=== PATIENT | male | born 1965 | race Caucasian/White ===

== ENCOUNTER 2016-07-21 07:22 | Day surgery (SDC) | payer BC ==
[2016-07-20 11:54] VITALS: BMI 30.4
[2016-07-21] MEDS ORDERED: LIDOCAINE HCL/PF 2% SDV 5ML VIAL ONE (09:01)
[2016-07-21] MEDS ORDERED: ROCURONIUM BROMIDE 50 MG/5 ML VIAL ONE (09:02)
[2016-07-21] MEDS ORDERED: SUCCINYLCHOLINE CHLORIDE 200 MG/10 ML VIAL ONE (09:02)
[2016-07-21] MEDS ORDERED: MIDAZOLAM HCL 2 MG/2 ML SINGLE DOSE VIAL ONE (09:02)
[2016-07-21] MEDS ORDERED: PROPOFOL 20 ML ONE (09:02)
[2016-07-21] MEDS ORDERED: ERTAPENEM SODIUM 1 GM VIAL IVPB ONE (09:30)
[2016-07-21] MEDS ORDERED: ERTAPENEM SODIUM 1 GM VIAL ONE (09:32)
[2016-07-21] MEDS ORDERED: DEXAMETHASONE SOD PHOSPHATE 4 MG/1 ML VIAL ONE ×2 (09:52→09:53)
[2016-07-21] MEDS ORDERED: GLYCOPYRROLATE 0.2 MG/1 ML VIAL ONE (10:00)
[2016-07-21] MEDS ORDERED: NEOSTIGMINE METHYLSULFATE 0.5 MG/ML - 10 ML MDV ONE (10:00)
[2016-07-21] MEDS ORDERED: oxyCODONE HCL 5 MG TABLET PO PRN ×2 (10:17→16:34)
[2016-07-21] MEDS ORDERED: ONDANSETRON 4 MG/2 ML VIAL IVPUSH PRN ×2 (10:17→16:34)
[2016-07-21] MEDS ORDERED: LACTATED RINGERS SOLUTION 1,000 ML IV SCH (10:30)
[2016-07-21] MEDS ORDERED: HYDROmorphone HCL CARPU-JECT 1 MG/1 ML DISP.SYRIN IVPUSH ONE (14:00)
[2016-07-21] MEDS ORDERED: HYDROmorphone HCL CARPU-JECT 2 MG/1 ML DISP.SYRIN ONE (14:48)
[2016-07-21] MEDS ORDERED: KETOROLAC TROMETHAMINE 15 MG/ML VIAL IVPUSH PRN (16:33)
[2016-07-21] MEDS ORDERED: ACETAMINOPHEN 325 MG TABLET (FP) PO PRN (16:36)
[2016-07-21] MEDS ORDERED: D5-1/2NS+20 MEQ KCL - 1,000 ML IV SCH (16:45)
[2016-07-21] MEDS: FAMOTIDINE 20 MG/50 ML IVPB 50 ML IVPB SCH (21:29)
--- NOTE | 2016-07-21 23:04 | OP ---
DATE OF OPERATION: 07/21/2016 PREOPERATIVE DIAGNOSIS: Chronic cholecystitis/cholelithiasis. POSTOPERATIVE DIAGNOSIS: Chronic cholecystitis/cholelithiasis. PROCEDURE: Laparoscopic cholecystectomy. OPERATING SURGEON: Robert Boyer M.D. PULPWOOD BUYER: Mike Murdock D.O. ANESTHESIA: Stefany Pelayo M.D. (general) HISTORY: A 51-year-old man who presents for laparoscopic cholecystectomy, managed with symptomatic cholelithiasis. Indications, alternatives, possible complications reviewed. Consent obtained. DESCRIPTION OF PROCEDURE: With the patient in the supine position, under general endotracheal anesthesia, the abdomen was prepped and draped in the usual sterile fashion using chlorhexidine. Small incision was made in the infraumbilical region. The Veress needle was placed into the abdominal cavity. The abdominal cavity was insufflated to an adequate pressure and volume using CO2 gas. Veress needle was removed. An 11-mm trocar port placed through the umbilical wound. The camera lens passed through this port, and the intraabdominal cavity visualized. Under direct vision, two 5-mm right anterolateral ports were placed, exercising care not to encroach on the Lap-Band apparatus which was in plain view. An 11-mm port was placed in the epigastrium, through which operating instruments were passed. Limited exploration in the abdomen revealed multiple adhesions about the gallbladder. No other significant findings noted. These adhesions were taken down under direct vision, exposing the entire gallbladder and hepatoduodenal ligament. The was incised. The cystic duct was identified. The cystic duct/bile duct junction was noted. The cystic duct was clipped and divided. The adjacent artery was managed similarly. The gallbladder was then removed from the gallbladder bed, lysing its attachment using electrocautery. It was opened, disconnected, and placed in a retrievable bag. The right upper quadrant was irrigated. The irrigant retrieved. Adequate hemostasis was insured. All ports were removed under direct vision. No bleeding identified. Ultimately the umbilical port was removed. The gallbladder was extracted via the umbilical defect in its retrieval bag. The pneumoperitoneum was allowed to escape. The fascia at the umbilicus was closed with interrupted number 1 Vicryl sutures. Both skin wounds were closed using subcuticular 4-0 Biosyn sutures. Needle, instrument count correct. Estimated blood loss minimal. Specimen gallbladder. Drains none. Patient tolerated procedure. Procedure was tolerated. Lambert [id number] MTDD
[2016-07-22] MEDS: FAMOTIDINE 20 MG/50 ML IVPB 50 ML IVPB SCH (09:39)
[2016-07-22] MEDS ORDERED: ENOXAPARIN NA (PORCINE) 40 MG/0.4 ML DISP.SYRIN SQ SCH (10:00)
[2016-07-22] MEDS ORDERED: ERTAPENEM SODIUM 1 GM in SODIUM CHLORIDE 50 ML IVPB ONE (10:00)
[2016-07-22 10:31] VITALS: BP 120/69; PULSE 75; TEMP 98.2
--- NOTE | 2016-07-22 12:17 | PATH ---
Surgical Pathology Report Patient Name: BRAULIO GREEN [facility]. Rec. #: [id number] /Age/Gender: 1965 (Age: 51) / M Account: [id number] Location: AMBULATORY SURG Taken: 07/21/2016 Received: 07/21/2016 Reported: 07/22/2016 Physicians: Robert Boyer M.D. Specimen(s) Received GALLBLADDER Clinical History Calculus of gallbladder Final Diagnosis GALLBLADDER, CHOLECYSTECTOMY: CHRONIC CHOLECYSTITIS AND CHOLELITHIASIS. Electronically Signed Davi Claros M.D. Gross Description Received in formalin, labeled "gallbladder," is a 6.0 x 2.0 x 1.7 cm. gallbladder with a 0.2 cm. in length portion of cystic duct attached. The outer surface is song-pink with a focal defect and varies from smooth to shaggy. The lumen contains song, tenacious bile as well as abundant black, irregular choleliths ranging from 0.1-0.3 cm in greatest dimension. The mucosa is song and velvety. The wall of the gallbladder averages 0.1 cm. in thickness. Green Chain Puller sections are submitted in one cassette. /07/21/201607/21/2016
== END 2016-07-22 11:59 | disposition home or self-care (01) ==
LOC: JASU-SURG 07:22 → JASUSAT 07:22 → J8W 15:30 → JASUSAT 07-22 11:59
PROVIDERS: ATTEND Surgery
PROC: 0FT44ZZ Resection of Gallbladder, Percutaneous Endoscopic Approach (ICD-10-PCS; principal; 2016-07-21 09:00)
DX: K80.10 Calculus of gallbladder with chronic cholecystitis without obstruction (principal)
CPT/HCPCS: 86850; 86900; 86901; 88304-TC; 94010; 94760

== ENCOUNTER 2019-07-06 07:43 | Day surgery (SDC) | payer BC ==
[2019-07-06 08:31] VITALS: BMI 30.5
[2019-07-06 10:07] VITALS: TEMP 98.7
[2019-07-06 11:13] VITALS: BP 144/83; PULSE 73
--- NOTE | 2019-07-09 16:17 | PATH ---
Surgical Pathology Report Patient Name: BRAULIO GREEN [facility]. Rec. #: [id number] /Age/Gender: 1965 (Age: 54) / M Account: [id number] Location: [facility]-ENDOS[facility] Taken: 07/05/2019 Received: 07/06/2019 Reported: 07/09/2019 Physicians: Tri Blank M.D. Specimen(s) Received A: DUODENUM BULB B: ANTRUM C: GE JUNCTION D: ASCENDING COLON POLYP Clinical History GERD, adenoma surveillance, bariatric surgery status Postoperative diagnosis: Hiatal hernia, duodenitis, lap band surgery status, severe reflux esophagitis with ulceration and nodularity, colon polyp, diverticulosis Final Diagnosis A. DUODENUM, SECOND PORTION AND DUODENAL BULB, BIOPSY: DUODENAL MUCOSA WITH MODERATE CHRONIC DUODENITIS AND PRESERVED VILLOUS ARCHITECTURE. B. STOMACH, ANTRUM, BIOPSY: GASTRIC MUCOSA WITH MILD CHRONIC GASTRITIS. IMMUNOHISTOCHEMICAL STAIN FOR H. PYLORI IS NEGATIVE. C. GE JUNCTION, BIOPSY: SQUAMOCOLUMNAR MUCOSA WITH SEVERE REFLUX TYPE CHANGES, MARKED ACUTE ESOPHAGITIS, AND ASSOCIATED ULCERATION. NO INTESTINAL METAPLASIA OR DYSPLASIA IDENTIFIED. PAS FUNGAL STAIN IS NEGATIVE D. ASCENDING COLON, POLYP, BIOPSY: TUBULAR ADENOMA. Electronically Signed Megan Thomas M.D. Gross Description A. Received in formalin, labeled "second portion of duodenum and bulb" are 3 song, irregular portions of soft tissue ranging from 0.2-0.5 cm. in greatest dimension. The specimens are submitted in toto in one cassette. B. Received in formalin, labeled "antrum biopsy" are 2 song, irregular portions of soft tissue measuring 0.2 and 0.7 cm. in greatest dimension. The specimens are submitted in toto in one cassette. C. Received in formalin, labeled "GE junction biopsy" are 6 song, irregular portions of soft tissue ranging from 0.1-0.3 cm. in greatest dimension. The specimens are submitted in toto in one cassette. D. Received in formalin, labeled "ascending colon polyp biopsy" is a song, irregular portion of soft tissue measuring 0.4 cm. in greatest dimension. The specimen is submitted in toto in one cassette. DL/07/06/2019 saudi/07/06/2019
== END 2019-07-06 11:07 | disposition home or self-care (01) ==
LOC: JASU-ENDO 07:43
PROVIDERS: ATTEND Internal Medicine Gastroenterology
PROC: 0DB98ZX Excision of Duodenum, Via Natural or Artificial Opening Endoscopic, Diagnostic (ICD-10-PCS; 2019-07-06)
PROC: 0DB68ZX Excision of Stomach, Via Natural or Artificial Opening Endoscopic, Diagnostic (ICD-10-PCS; 2019-07-06)
PROC: 0DB48ZX Excision of Esophagogastric Junction, Via Natural or Artificial Opening Endoscopic, Diagnostic (ICD-10-PCS; 2019-07-06)
PROC: 0DBK8ZX Excision of Ascending Colon, Via Natural or Artificial Opening Endoscopic, Diagnostic (ICD-10-PCS; principal; 2019-07-06 09:00)
DX: Z12.11 Encounter for screening for malignant neoplasm of colon (principal); D12.2 Benign neoplasm of ascending colon; K57.30 Diverticulosis of large intestine without perforation or abscess without bleeding; K64.8 Other hemorrhoids; K21.0 Gastro-esophageal reflux disease with esophagitis; K44.9 Diaphragmatic hernia without obstruction or gangrene; K22.10 Ulcer of esophagus without bleeding; K29.80 Duodenitis without bleeding; K29.50 Unspecified chronic gastritis without bleeding; Z98.84 Bariatric surgery status; Z86.010 Personal history of colon polyps
CPT/HCPCS: 88305-TC; 88312-TC; 88342-TC

== ENCOUNTER 2019-07-23 09:17 | Day surgery (SDC) | payer BC ==
[2019-07-18 16:44] VITALS: BMI 30.9
[2019-07-23] MEDS ORDERED: fentaNYL CITRATE 250 MCG/5 ML VIAL ONE (10:39)
[2019-07-23] MEDS ORDERED: PROPOFOL 20 ML ONE (10:40)
[2019-07-23] MEDS ORDERED: ROCURONIUM BROMIDE 50 MG/5 ML SYRINGE ONE (10:40)
[2019-07-23] MEDS ORDERED: MIDAZOLAM HCL 2 MG/2 ML SINGLE DOSE VIAL ONE (10:40)
[2019-07-23] MEDS ORDERED: LIDOCAINE HCL/PF 2% SDV 5ML VIAL ONE (10:41)
[2019-07-23] MEDS ORDERED: DEXAMETHASONE SOD PHOSPHATE 4 MG/1 ML VIAL ONE (10:41)
[2019-07-23] MEDS ORDERED: ceFAZolin SODIUM 1 GM VIAL ONE (10:41)
[2019-07-23] MEDS ORDERED: ONDANSETRON 4 MG/2 ML VIAL ONE (10:41)
[2019-07-23] MEDS ORDERED: KETOROLAC TROMETHAMINE 30 MG/1 ML VIAL ONE (10:41)
[2019-07-23] MEDS ORDERED: BUPIVACAINE HCL 0.25% 125 MG/50 ML VIAL ONE (10:48)
[2019-07-23] MEDS ORDERED: GLYCOPYRROLATE 0.2 MG/1 ML VIAL ONE (11:16)
[2019-07-23] MEDS ORDERED: LABETALOL HCL 5 MG/1 ML (100MG/20 ML VIAL) ONE (11:37)
[2019-07-23] MEDS ORDERED: ePHEDrine SULFATE 50 MG/1 ML AMPULE ONE (13:21)
[2019-07-23] MEDS ORDERED: BUPIVACAINE HCL/PF 0.25% (2.5MG/ML) 10 ML VIAL IJ ONE (14:10)
[2019-07-23] MEDS ORDERED: oxyCODONE HCL 5 MG TABLET PO PRN ×3 (14:29→14:41)
[2019-07-23] MEDS ORDERED: ONDANSETRON 4 MG/2 ML VIAL IVPUSH PRN ×2 (14:29→14:41)
[2019-07-23] MEDS ORDERED: SODIUM CHLORIDE 1,000 ML IV SCH (14:30)
--- NOTE | 2019-07-23 14:36 | OP ---
Operative Note - Note: Operative Date: 07/23/19 Pre-Operative Diagnosis: Epigastric Pain. Vomiting. GE Reflux Disease. Mechanical complication of implantable device secondary to Gastric Band Operation: Laparoscopic Removal of Gastric Band plus subcutaneous port. Wedge Biopsy of left lobe of liver. Laparoscopic lysis of adhesions. Excision of fibrous capsule around Band. Diagnostic Laparoscopy Findings: Large amount of adhesions in RUQ and LUQ and extensive adhesiolysis performed Thick fibrous capsule noted around Band and dissected off Enlarged left lobe of liver and biopsy performed Post-Operative Diagnosis: Same as Pre-op (Abdominal adhesions; Hepatomegaly; Fibrous capsule around Band) Surgeon: Luis A Saeed Foamite Mixer: Lb Cuevas Anesthesia: General Specimens Removed: Gastric Band plus subcutaneous port. Wedge biopsy of left lobe of liver Estimated Blood Loss (mls): 50 Operative Report Dictated: Yes
[2019-07-23] MEDS ORDERED: HYDROmorphone HCL CARPU-JECT 2 MG/1 ML DISP.SYRIN IVPUSH PRN (14:42)
[2019-07-23] MEDS ORDERED: HYDROmorphone HCl 2 MG/ML VIAL IVPUSH PRN (14:43)
[2019-07-23 15:16] LABS: HEMATOCRIT 45.3 % (35.4-49); HEMOGLOBIN 14.9 GM/dl (11.7-16.9); MCH 29.9 pg (25.7-33.7); MCHC 32.9 g/dl (32.0-35.9); MEAN CELL VOLUME 90.8 fl (80-96); MEAN PLT VOLUME 8.4 fl (7.5-11.1); PLATELET COUNT 202 K/MM3 (134-434); RBC 4.99 M/mm3 (4.00-5.60); RDW 13.3 % (11.9-15.9); WHITE BLOOD COUNT 5.9 K/mm3 (4.0-10.8)
[2019-07-23 15:17] LABS: CALCIUM 8.7 mg/dl (8.5-10); POTASSIUM 4.5 mmol/L (3.5-5.1)
[2019-07-23] MEDS ORDERED: FAMOTIDINE 20 MG/50 ML IVPB 20 MG/50 ML MG IVPB ONE (15:23)
[2019-07-23] MEDS ORDERED: HYDROmorphone HCL 0.5 MG/0.5 ML SYRINGE ONE (15:23)
[2019-07-23] MEDS ORDERED: ENOXAPARIN NA (PORCINE) 40 MG/0.4 ML DISP.SYRIN SQ SCH (16:00)
[2019-07-23 17:00] VITALS: TEMP 97.9
[2019-07-23 17:46] VITALS: BP 115/82; PULSE 76
[2019-07-23] MEDS ORDERED: FAMOTIDINE 20 MG/50 ML IVPB 20 MG/50 ML MG IVPB SCH (22:00)
--- NOTE | 2019-07-24 01:04 | OP ---
DATE OF OPERATION: 07/23/2019 PREOPERATIVE DIAGNOSIS: 1. Epigastric abdominal pain. 2. Gastroesophageal reflux disease. 3. Vomiting. POSTOPERATIVE DIAGNOSIS: 1. Epigastric abdominal pain. 2. Gastroesophageal reflux disease. 3. Vomiting. 4. Abdominal adhesions. 5. Fibrous capsule around the band. 6. Hepatomegaly. PROCEDURE PERFORMED: 1. Laparoscopic removal of gastric band post subcutaneous port component. 2. Wedge biopsy of enlarged left lobe of liver. 3. Laparoscopic lysis of adhesions. 4. Excision of fibrous capsule around the stomach. 5. Diagnostic laparoscopy. OPERATING SURGEON: Luis A Saeed MD. PREPRESS TECHNICIAN: Lb Cuevas MD. ANESTHESIA: General. EXPECTED BLOOD LOSS: 50 mL. DISPOSITION: The patient was transferred to the recovery room in stable condition. OPERATIVE PROCEDURE: The patient was brought into the operating room, placed on the OR table in the supine position. All precautions were taken initially including padding for the back and the feet, and Venodyne boots were placed on both lower extremities. At that point, the abdomen was prepped and draped in the usual manner. A Veress needle was placed in the left upper quadrant, and pneumoperitoneum was established. Through the left upper quadrant, under direct vision with a number 5 camera, a number 5 trocar was placed into the abdominal cavity. Through that trocar, a laparoscopic camera was placed. Immediately upon placing the camera there were noted to be a large amount of adhesions in the left upper quadrant which was the omentum attached to the anterior abdominal wall. There were also significant adhesions in the right upper quadrant in the area where the band tubing was going to the subcutaneous port, and this was connected to the falciform ligament. This made it difficult to get all the trocars in. A right lateral number 5 trocar was then placed under direct vision, and a number 5 left lateral was placed just below the left costal margin. Using that as a working port, the adhesions were lysed in the right upper quadrant between the omentum and the falciform ligament. Care was taken not to cause any injuries to any other structures in the area. There was some oozing noted from the omentum, and this was controlled with the LigaSure device. At that point, there was clearing in the right upper quadrant, a number 15 bladeless trocar was placed in the right upper quadrant. Attention now directed to the adhesion in the left upper quadrant where again the district administrative assistant surgeon retracted the adhesions and the operating surgeon used the LigaSure device to dissect the adhesions off the anterior abdominal wall. Once this was done, attention was now directed to the band around the stomach. A [place] liver retractor was then placed in the epigastrium to retract the left lobe of the liver. The left lobe was extremely enlarged out of proportion. It was decided a wedge biopsy would be performed. The LigaSure was then used to dissect a triangular piece on the edge of the left lobe of the liver, and this was sent off the field as a specimen to pathology. There was no bleeding from the parenchyma once this was done by the LigaSure device. At that point, the patient was placed in 20-degree reverse Trendelenburg position by anesthesia. The band noted in the left upper quadrant, and adhesions were noted around it. The adhesions were lysed with electrocautery, and this was done until the band tubing was followed all the way to the band around the stomach. At this juncture, the district administrative assistant surgeon retracted the band and the band tubing to the patient's left side, the operating surgeon dissected fibrous capsule off the band on the lesser curvature until the total band in the lesser curvature of the stomach was in full view. At this point, the surgeon retracted the band towards the patient's right side, and the district administrative assistant surgeon retracted the stomach on the greater curvature inferiorly. Once again, electrocautery was used to dissect the fibrous capsule off the band until the band was freely mobile and movable on the lesser and greater curve anteriorly. The band was then cut with the scissors. It was opened up, and the band tubing was cut to take off to the subcutaneous port. The band was then cut in two and both pieces removed from around the stomach and sent off the field as a specimen to pathology. At this point, attention was directed to the areas of the resection where the dissection of lysis of adhesions and no signs of any bleeding were noted from any of these areas. Under direct vision, all trocars were removed and pneumoperitoneum released. A number 15 right upper quadrant port site was extended laterally and dissected electrocautery down to the port on the right anterior rectus muscle fascia. The fibrous capsule was dissected off the port, and the port was then removed from the right anterior rectus muscle, sent off the field as specimen to pathology with the rest of the band. At this point, all trocar sites received 0.25% Marcaine, the number 15 trocar site was closed with 3-0 Vicryl on the subcutaneous tissue, that closed the subcutaneous base, then all trocar sites were closed with 4-0 Biosyn in subcuticular fashion. Dressings were applied, patient awoken from anesthesia and transferred out of the operating room to the recovery room in stable condition. Lambert [id number]
--- NOTE | 2019-07-25 18:24 | PATH ---
Surgical Pathology Report Patient Name: BRAULIO GREEN Med. Rec. #: [id number] /Age/Gender: 1965 (Age: 54) / M Account: [id number] Location: [facility] AMBULATORY Taken: 07/23/2019 Received: 07/23/2019 Reported: 07/25/2019 Physicians: Luis A Saeed M.D. Specimen(s) Received A: GASTRIC BAND & PORT B: LIVER BIOPSY Clinical History Mechanical complication Final Diagnosis A. GASTRIC BANDING AND PORT, REMOVAL: GASTRIC BAND AND PORT. MACROSCOPIC DIAGNOSIS. B. LIVER, BIOPSY: LIVER PARENCHYMA WITH MINIMAL STEATOSIS (< 5%). NO INCREASE IN IRON AND FIBROSIS ON PERFORMED SPECIAL STAINS (IRON AND TRICHROME). Electronically Signed Megan Thomas M.D. Gross Description A. Received fresh labeled "gastric band and port," are 2 portions of a disrupted gastric band measuring 4.5 x 1.5 x 1 and 4 x 1.5 x 1 cm. The smaller portion displays an attached 39 cm in length portion of white tubing. Also received within the same container is a 3 cm in diameter x 1.5 cm in depth white, circular device, consistent with a port. The port displays a 5.5 cm in length portion of white tubing extending from one aspect. No soft tissue is present. No sections are submitted, for gross only. B. Received in formalin labeled "liver biopsy" brown song wedge-shaped liver parenchyma measuring 2.5 x 1.5 x 1 cm. The specimen is bisected and entirely submitted in one cassette. MLSZ/07/24/2019 laz/07/24/2019
== END 2019-07-23 18:00 | disposition home or self-care (01) ==
LOC: FASU 09:17
PROVIDERS: ATTEND Surgery
PROC: 0DN64ZZ Release Stomach, Percutaneous Endoscopic Approach (ICD-10-PCS; 2019-07-23)
PROC: 0FB24ZX Excision of Left Lobe Liver, Percutaneous Endoscopic Approach, Diagnostic (ICD-10-PCS; 2019-07-23)
PROC: 0DP64CZ Removal of Extraluminal Device from Stomach, Percutaneous Endoscopic Approach (ICD-10-PCS; principal; 2019-07-23 13:15)
DX: T85.598A Other mechanical complication of other gastrointestinal prosthetic devices, implants and grafts, initial encounter (principal); R10.13 Epigastric pain; K21.9 Gastro-esophageal reflux disease without esophagitis; R11.10 Vomiting, unspecified; K66.0 Peritoneal adhesions (postprocedural) (postinfection); K31.89 Other diseases of stomach and duodenum; R16.0 Hepatomegaly, not elsewhere classified; Y73.3 Surgical instruments, materials and gastroenterology and urology devices (including sutures) associated with adverse incidents; Y93.89 Activity, other specified; Y92.89 Other specified places as the place of occurrence of the external cause
CPT/HCPCS: 36415; 80048; 85027; 88300-TC; 88305-TC; 88313-TC; 94760

== ENCOUNTER 2021-01-07 16:19 | Emergency (ER) | payer OTHER, BC ==
[2021-01-07] MEDS ORDERED: IBUPROFEN 600 MG TABLET (FP) PO ONE ×2 (16:28→16:40)
[2021-01-07 16:38] VITALS: BP 125/83; PULSE 57; TEMP 99.1; BMI 34.8
[2021-01-07] MEDS ORDERED: ACETAMINOPHEN 325 MG TABLET (FP) ONE (16:41)
[2021-01-07] MEDS ORDERED: ACETAMINOPHEN 325 MG TABLET (FP) PO ONE (16:41)
== END 2021-01-07 17:38 | disposition home or self-care (01) ==
LOC: FER 16:19
DX: S89.92XA Unspecified injury of left lower leg, initial encounter (principal)
CPT/HCPCS: 73560-TC-LT-FY; 99283-25